=== PATIENT | male | born 1995 | race Caucasian/White ===

== ENCOUNTER 2021-01-11 22:36 | Emergency (ER) | payer MEDICAID ==
[~2021-01-11] VITALS: Ht 167.6 cm; Wt 79.0 kg
[2021-01-11] MEDS ORDERED: IBUPROFEN 600MG TABLET PO STA (22:57)
[2021-01-11] MEDS ORDERED: IBUP-2029 MT (23:15)
[2021-01-11 23:30] VITALS: BP 125/78
== END 2021-01-11 23:31 | disposition home or self-care (01) ==
LOC: ER 22:36
DX: S20.212A Contusion of left front wall of thorax, initial encounter (principal); Z90.49 Acquired absence of other specified parts of digestive tract; W51.XXXA Accidental striking against or bumped into by another person, initial encounter; Y93.66 Activity, soccer; Y92.89 Other specified places as the place of occurrence of the external cause; Y99.8 Other external cause status
CPT/HCPCS: 71045; 93005; 99283